=== PATIENT | female | born 1995 | race Caucasian/White ===

== ENCOUNTER → 2016-07-22 | Emergency (ER) | payer MEDICAID ==
[~2016-07-22] VITALS: Ht 165.1 cm; Wt 57.7 kg
[~2016-07-22] MED LIST: EYE RIGHT EYE ONE; FLUORESCEIN SODIUM 1 MG/STRIP BOTH EYES ONE; GENTAMICIN 0.3% RIGHT EYE ONE; HYDR-3989 PO; IBUP-1547 PO; MEDR400V IM; PREN1TAB53 PO; TETRACAINE 0.5% EYE DROPS 4ml BOTTLE BOTH EYES ONE
[2016-07-22 04:41] VITALS: BP 114/69; PULSE 117; RESP 21; TEMP 98.5; O2SAT 98; Ht 165.1 cm; Wt 57.7 kg
--- NOTE | 2016-07-22 04:51 | ERPDOC ---
Departure Disposition Decision Date: Jul 22, 2016 Disposition Decision Time: 04:48 Disposition: 01 DISCHARGED HOME, SELF-CARE Impression Impression Impression: Primary Impression: Keratitis Severity: Severe Condition: Improved Seen By: Physician only Patient Instructions: Keratitis (ED) Problems/Meds/Labs Reviewed?: Yes Medications reviewed and manag: Yes Additional Instructions: Gentamicin ophthalmic ointment 1/4 inch applied to the eye times daily for one week May use tetracaine numbing drops, one to 2 drops each hour for the first 24 hours only If symptoms are not improving, see your eye doctor. Follow up care ordered?: Yes Mental Status: Alert HPI - EENT General General Chief Complaint: Eye Problems Stated Complaint: RIGHT EYE PAIN Time Seen by Provider: 04:30 Source: patient Exam Limitations: no limitations HPI - EENT General Initial Comments 3 days ago the patient was driving with her windows open she had the sudden onset of severe right eye pain and watering. Says persisted for the past 3 days , worse or she's been awake for a long period or reading, and now she is experiencing pain that she associates with eyestrain or vision strain. No visual changes, 2 days from the eye, but she does have ringing scratching sensation throughout the right eye, and frequent increased tearing due to pain. Onset/Timing: Rapid Severity: moderate, severe Location: eye (R) Prearrival Treatment: over the counter meds Associated Symptoms: DENIES: change in hearing, drooling, ear drainage, facial pain/swelling, fever, malaise, nasal congestion/drainage, poor fluid intake, poor solids intake, sinus infection, sore throat, tooth pain, voice change Allergies: Coded Allergies: No Known Allergies (Unverified , 07/22/16) Past History Past Medical History Female: , para Surgical History Denies Surgeries Vaccines Hx Influenza Vaccination: Yes (04/11/14) Hx Pneumococcal Vaccination: No Hx Tetanus Diptheria: No Hx Tetanus, Diptheria, Pertuss: No Review of Systems Constitutional Constitutional: DENIES: appetite decrease, appetite increase, chills, dizziness , fever, weakness Eyes General: burning, erythema, pain, photophobia Lids/Accessories: erythema, DENIES: lumps/nodules, swelling Vision: see HPI ENMT Ears: DENIES: pain Hearing: DENIES: hearing loss, tinnitus Balance: DENIES: vertigo Mouth/Throat: DENIES: change in swallowing, change in voice, hoarsness, painful swallowing, sore throat Cardiovascular Cardiac: DENIES: chest pain, dyspnea on exertion Rhythm/Rate: DENIES: irregular beat, palpitations, tachycardia Vascular: DENIES: pedal edema Pulmonary Respiratory: DENIES: cough, dyspnea, pleuritic chest pain GI Upper Abdomen: DENIES: dysphagia, heartburn/indigestion, nausea, pain, vomiting Lower Abdomen: DENIES: blood in stool, constipation, diarrhea, pain General: DENIES: burning, dysuria, frequency, pain, urgency Musculoskeletal General: DENIES: cramps, joint pain, joint swelling, pain, weakness Integumentary Skin: DENIES: rash, sores Neurological General: DENIES: headache, numbness, tingling, vertigo, weakness Physical Exam General General Nourishment: well nourished, well developed, appears stated age, thin General Body Habitus: well groomed Vitals and Pain First Documented Vital Signs Date Time Temp Pulse Resp B/P Pulse Ox O2 Delivery O2 Flow Rate FiO2 07/22/16 04:41 98.5 117 21 114/69 98 Room Air Weight: Kilograms: 57.700 Height (feet): 5 Height (inches): 5.00 Triage Pain Scale: RN VS reviewed by Provider: Yes Normal Exams: Head: Normocephalic w/o trauma Eyes (brief) Eyes Brief: found: EOMI, PERRL, not found: foreign body, papilledema, scleral icterus Comments Same in addition after tetracaine application and floor seen using both slit lamp as well as Diaz lamp shows moderate diffuse grainy topography of the cornea with conjunctival injection only. No abrasions, specific lesions, foreign bodies, ulcerations, or abrasions are seen. No specific areas of dye uptake. Progress Results/Orders Orders Procedure Category Date Status Time Tetracaine 0.5% Eye PHA 07/22/16 Complete Drops (Tetracaine 0. 04:45 Fluorescein Sodium PHA 07/22/16 Complete (Ful-Cordelia) 04:45 Gentamicin 0.3% PHA 07/22/16 In Process Ointment (Garamycin 05:00 Medications Current ED Medications Tetracaine HCl (Tetracaine 0.5% Eye Drops) 1 drop O ONCE BOTH EYES Last administered on 07/22/16t 04:41; Start 07/22/16 at 04:45; Stop 07/22/16 at 04:46 ; Status DC Fluorescein Sodium (Ful-Cordelia) 1 mg O ONCE BOTH EYES Last administered on 04:40; Start 07/22/16 at 04:45; Stop 07/22/16 at 04:46; Status DC Progress Progress Patient appears to have otitis secondary to possible environmental exposure We will use tetracaine drops, one drop more than once an hour for 24 hours, She will also use gentamicin ophthalmic ointment 3 times daily both lubrication as well as infection protection. CHIKIS SINGLETON MD Jul 22, 2016 04:51
--- NOTE | 2016-07-22 05:00 | NUR ---
DEPARTURE PT COLLECTED BELONGINGS AND AMBULATED INDEPENDENTLY TO EXIT, GAIT STEADY.
== END | disposition home or self-care (01) ==
LOC: ED 04:27
DX: H16.9 Unspecified keratitis (principal)